=== PATIENT | female | born 1985 | race Caucasian/White ===

== ENCOUNTER 2019-09-02 18:04 | Emergency (ER) | payer SELFPAY ==
[2019-09-02] MEDS ORDERED: Bupivacaine 0.5% 10 ML VIAL ONE (18:33)
[2019-09-02] MEDS ORDERED: Lidocaine 1% (PF) 30 ML VIAL ONE (18:33)
[2019-09-02] MEDS ORDERED: Adacel (T-DAP) 0.5 ML SYRINGE ONE (18:35)
[2019-09-02] MEDS ORDERED: Sterile Water 10 ML ONE (19:59)
[2019-09-02] MEDS ORDERED: CEFAZOLIN 1 GM VIAL ONE (19:59)
--- NOTE | 2019-09-02 20:44 | RAD ---
THREE VIEWS RIGHT MIDDLE FINGER: 09/02/19 HISTORY: Crush injury to distal left ring finger. Patient crushed finger in door. FINDINGS: There is a mildly comminuted fracture with mild displacement of fracture fragments involving the tuft of the distal phalanx left ring finger. This fracture is just beneath the nailbed and may represent an open fracture. There is a tiny osseous density seen at the level of the nailbed. No additional fr acture is seen, and there is no dislocation. IMPRESSION: Mildly comminuted fracture with displaced fracture fragment involving the tuft distal phalanx left ri ng finger which is probably related to an open fracture. POS: [id number]
== END 2019-09-02 20:40 | disposition home or self-care (01) ==
LOC: ERS 18:04
DX: S62.635B Displaced fracture of distal phalanx of left ring finger, initial encounter for open fracture (principal); F31.9 Bipolar disorder, unspecified; F41.9 Anxiety disorder, unspecified; F17.210 Nicotine dependence, cigarettes, uncomplicated; W23.1XXA Caught, crushed, jammed, or pinched between stationary objects, initial encounter; Z79.899 Other long term (current) drug therapy
CPT/HCPCS: 64450; 90471; 90715; 96372; J0690; J2001; J3490